=== PATIENT | female | born 1985 | race Asian ===

== ENCOUNTER 2017-04-15 09:54 | Emergency (ER) | payer OTHER ==
[~2017-04-15] VITALS: Ht 154.9 cm; Wt 57.1 kg
[2017-04-15 13:15] LABS: BASOPHIL % 0.8 % (0-2); PLATELET COUNT 391 x10^3mcL (130-400)
[2017-04-15 13:16] LABS: RED CELL DISTRIBUTION WIDTH 15.4 % (11.5-14.5)
[2017-04-15 13:32] LABS: CALCIUM 9.2 mg/dL (8.5-10.1); CARBON DIOXIDE 26.1 mmol/L (21-32); CHLORIDE SERUM 106 mmol/L (98-107); CREATININE SERUM 0.7 mg/dL (0.6-1.0); GFR1 > 60 mL/min; GLUCOSE SERUM 97 mg/dL (74-106); POTASSIUM SERUM 4.3 mmol/L (3.5-5.1); SODIUM SERUM 141 mmol/L (136-145)
[2017-04-15 13:36] LABS: ALKALINE PHOSPHATASE 52 U/L (46-116); ALT/SGPT 19 U/L (14-59); AST/SGOT 11 U/L (15-37); BILIRUBIN TOTAL 0.32 mg/dL (0.20-1.00); LIPASE 222 IU/L (73-393); TOTAL PROTEIN, SERUM 8.1 g/dL (6.4-8.2)
[2017-04-15 17:01] VITALS: BP 104/65
== END 2017-04-15 17:01 | disposition home or self-care (01) ==
LOC: ED 09:54
PROVIDERS: Emergency Medicine
DX: R10.9 Unspecified abdominal pain (principal); R19.7 Diarrhea, unspecified; R11.10 Vomiting, unspecified; R51 Headache; Z90.49 Acquired absence of other specified parts of digestive tract
CPT/HCPCS: J0780; J1200; J1885; J3010; J7030; Q9967